=== PATIENT | female | born 1995 | race Caucasian/White ===

== ENCOUNTER 2020-09-05 09:09 | Emergency (ER) | payer OTHER, MEDICAID ==
[~2020-09-05] VITALS: Ht 162.6 cm; Wt 79.4 kg
[2020-09-05 09:53] LABS: ABSOLUTE EOSINOPHILS 0.1 thou/uL (0.0-0.7); ABSOLUTE LYMPHOCYTES 1.8 thou/uL (0.8-5.3); ABSOLUTE MONOCYTES 0.5 thou/uL (0.0-1.2); ABSOLUTE NEUTROPHILS 4.7 thou/uL (1.6-8.1); BASOPHILS 0.6 %; EOSINOPHILS 0.9 %; HEMATOCRIT 36.9 % (37.0-47.0); LYMPHOCYTES 25.4 %; MCH 29.9 pg (26.0-34.0); MCHC 35.2 g/dL (28.0-37.0); MCV 85.1 fL (80.0-100.0); MPV 7.4 fl. (7.2-11.1); NUCLEATED RBCS 0 /100WBC; PLATELET COUNT* 345 thou/uL (150-400); POLYS 66.1 %; RBC 4.33 mil/uL (4.20-5.00); RDW-CV 12.2 % (10.5-14.5); WBC 7.1 thou/uL (4.0-11.0)
[2020-09-05 10:02] LABS: CALCIUM 8.8 mg/dL (8.5-10.1); CREATININE 0.6 mg/dL (0.6-1.3); POTASSIUM 3.7 mmol/L (3.5-5.1)
[2020-09-05 10:06] LABS: ALBUMIN 3.9 g/dL (3.4-5.0); TOTAL BILIRUBIN 0.3 mg/dL (<0.1-1.0); TOTAL PROTEIN 7.5 g/dL (6.4-8.2)
[2020-09-05 11:09] LABS: URINE BILIRUBIN NEGATIVE (Negative); URINE BLOOD NEGATIVE (Negative); URINE CLARITY SL CLOUDY; URINE COLOR YELLOW; URINE GLUCOSE-RANDOM NEGATIVE (Negative); URINE KETONES NEGATIVE (Negative); URINE PROTEIN NEGATIVE (Negative); URINE SPECIFIC GRAVITY 1.025 (1.005-1.030); URINE UROBILINOGEN 0.2 E.U./dl (0.2-1.0)
[2020-09-05 11:10] LABS: URINE LEUKOCYTES-REFLEX 2+ (Negative); URINE NITRITE-REFLEX POSITIVE (Negative)
[2020-09-05] MEDS ORDERED: DICLEGIS DR 101 EACH PO (11:18)
[2020-09-05] MEDS ORDERED: CEPHALEXIN500 MG PO (11:18)
[2020-09-05 11:24] LABS: BACTERIA-REFLEX >30 Many /HPF (None Seen); MUCUS 4-6 Moderate strn/LPF (None Seen); SQUAMOUS >10 Many /LPF (0-3)
[2020-09-05 11:25] LABS: CASTS None Seen /LPF (None Seen); CRYSTALS None Seen /LPF (None Seen); URINE RBC 0-2 Rare /HPF (0-2); URINE WBC-REFLEX >25 Many /HPF (0-5)
[2020-09-05 11:30] VITALS: BP 113/69
--- NOTE | 2020-09-07 13:47 | EKG ---
[place] [address] ELECTROCARDIOGRAM REPORT Name: LOUISE NARANJO Room: [facility]#: [id number] Admission: 09/05/20 Attend Phys: Discharge: 09/05/20 Date of : [birth year] Date of Service: 09/05/2055 Report #: [id number] THIS REPORT FOR: //name// [facility] ED Test Date: 2020-09-05 Test Time: 09:55:32 Pat Name: LOUISE NARANJO Department: Room: Gender: F Edi Analyst: : 1995 Requested By: Roger Dumas Order Number: [id number] MD: Moise Diaz Measurements Intervals [place] Rate: 86 P: 76 AK: 149 QRS: 69 QRSD: 88 T: 29 QT: 361 QTc: 432 Interpretive Statements Sinus rhythm No previous ECG available for comparison Electronically Signed On 09-07-2020 13:47:25 CDT by Moise Diaz [email or web address] <ELECTRONICALLY SIGNED> By: Moise Diaz MD, [facility] 09/07/20 1347 4 Moise Diaz MD, FACC /EPI
== END 2020-09-05 11:31 | disposition home or self-care (01) ==
LOC: M.ERS 09:09
PROVIDERS: Emergency Medicine Emergency Medical Services
DX: O23.41 Unspecified infection of urinary tract in pregnancy, first trimester (principal); O21.8 Other vomiting complicating pregnancy; R42 Dizziness and giddiness; Z3A.08 8 weeks gestation of pregnancy